=== PATIENT | female | born 1995 | race African-American/Black ===

== ENCOUNTER 2024-08-22 05:16 | Inpatient (IN) ==
[2024-08-22 05:56] LABS: Basophils # (auto) 0.02 K/uL (0.00-0.20); Basophils % (auto) 0.5 %; Eosinophils # (auto) 0.06 K/uL (0.00-0.50); Eosinophils % (auto) 1.4 %; Hematocrit (blood only) 36.2 % (37.0-47.0); Hemoglobin 11.1 g/dl (12.0-16.0); Immature Granulocytes # (auto) 0.01 K/uL (0.01-0.20); Immature Granulocytes % (auto) 0.2 %; Lymphocytes # (auto) 1.51 K/uL (1.20-3.40); Lymphocytes % (auto) 36.5 %; Mean Corpuscular Hgb Conc 30.7 g/dL (32.0-36.0); Mean Corpuscular Volume 78.4 fL (80.0-100.0); Monocytes # (auto) 0.29 K/uL (0.11-0.59); Neutrophils # (auto) 2.25 K/uL (1.40-6.50); Neutrophils % (auto) 54.4 %; Platelet Count 288 K/uL (130-400); RDW Coefficient of Variation 15.9 % (11.5-14.5); RDW Standard Deviation 45.1 fL (36.4-46.3); Red Blood Count 4.62 M/uL (4.20-5.40); White Blood Count 4.14 K/ul (4.8-10.8)
[2024-08-22 06:04] LABS: Appearance Urine Cloudy (Clear); Bacteria Urine Automated 4+ (None Seen); Bilirubin Urine Negative (Negative); Blood Urine Negative (Negative); Cast Urine Automated 0-2 /lpf (0-2); Color Urine Yellow; Glucose Urine UA Negative (Negative); Ketones Urine 1+ (Negative); Leukocyte Esterase Urine 2+ (Negative); Mucus Urine Present (None Prsent); Nitrite Urine Negative (Negative); Protein Urine 1+ (Negative); RBC Urine Automated 0-2 /hpf (0-2); Specific Gravity Urine 1.039 (1.000-1.030); Urobilinogen Urine Negative (Negative); pH Urine 5.5 (4.5-7.5)
[2024-08-22 06:07] LABS: Pregnancy Test, Serum Negative (Negative)
[2024-08-22 06:10] LABS: Acetaminophen < 3 ug/ml (10-30); Salicylate < 3.0 mg/dl (3.0-30)
[2024-08-22 06:12] LABS: Alanine Aminotransferase 13 U/L (7-52); Albumin Globulin Ratio 1.4 (0.9-2); Albumin Level 4.6 gm/dl (3.4-5.0); Alkaline Phosphatase 56 U/L (34-104); Anion Gap 7 (3-11); Aspartate Aminotransferase 19 U/L (13-39); BUN Creatinine Ratio 16.7 (10-20); Bilirubin,Total 1.3 mg/dl (0.2-1.0); Blood Urea Nitrogen 12 mg/dl (6-23); Calcium 9.3 mg/dl (8.6-10.3); Carbon Dioxide 25 mmol/L (21-32); Chloride 106 mmol/L (98-107); Globulin 3.2 gm/dl (2.5-4.0); Glucose 102 mg/dl (70-99(Fasting)); Potassium 3.6 mmol/L (3.5-5.1); Sodium 138 mmol/L (136-145); Total Protein 7.8 gm/dl (6.0-8.3)
[2024-08-22 06:16] LABS: Amphetamines+Metham, Urine Neg (Neg); Barbiturates, Urine Neg (Neg); Benzodiazepine, Urine Neg (Neg); Cocaine, Urine Neg (Neg); Fentanyl, Urine Neg (Neg); MDMA (Ecstacy), Urine Neg (Neg); Marijuana, Urine Pos (Neg); Methadone, Urine Neg (Neg); Opiate, Urine Neg (Neg); Phencyclidine, Urine Neg (Neg)
[2024-08-22 06:26] LABS: Thyroid Stimulating Hormone 3.517 uIu/ml (0.300-4.500)
--- NOTE | 2024-08-22 07:16 | Emergency Department Note ---
Impression & Plan Depression with suicidal ideation, Urinary tract infection, Acute cervicitis ED Provider Note NAME: TIFFANIE ALFARO AGE: 29 SEX: F : 1995 ARRIVES VIA: Police Cru[employer] INFORMANT: Patient, ED PROVIDER(S): Braeden Zaragoza DO CHIEF COMPLAINT: Mental health evaluation HPI: The patient is a 29-year-old female who presented to the emergency department for a mental health evaluation. The patient has been having problems with anxiety. She had a recent break-up with a significant other. She recently lost her job. She has not been sleeping well. The patient presented to the emergency department with police. The patient is having suicidal ideation. She is having specific thoughts of how she would hurt herself. The patient has had a similar admission for this in the past when she still lived in [place]. ROS: See above HPI for pertinent positives & negatives. A total of 10 systems reviewed and were otherwise negative. PAST MEDICAL HISTORY: See Below PAST SURGICAL HISTORY: See Below FAMILY HISTORY: See Below SOCIAL HISTORY: See Below HOME MEDICATIONS: See Below ALLERGIES: See Below VITALS: See Below PHYSICAL EXAMINATION: GENERAL: The patient is awake and alert. She is anxious appearing. EYES: The conjunctivae are clear. The pupils are round and reactive. EARS, NOSE, MOUTH AND THROAT: The nose is without any evidence of any deformity. NECK: The neck is nontender and supple. RESPIRATORY: Normal respiratory effort is noted there is no evidence of wheezing rhonchi or rales CARDIOVASCULAR: Regular rate and rhythm noted there no murmurs rubs or gallops normal S1 normal S2. GASTROINTESTINAL: The abdomen is soft. Abdomen is nontender PELVIS: External genitalia are normal in appearance. There was no rashes or erythema noted. Speculum exam revealed erythema of the cervix as well as a thin white discharge. There was cervical motion tenderness. There was no adnexal tenderness. Cervical motion tenderness was mild. MUSCULOSKELETAL/EXTREMITIES: There is no evidence of gross deformity full range of motion is noted in the hips and shoulders. SKIN: There is no obvious evidence of any rash. There are no petechiae, pallor or cyanosis noted. NEUROLOGIC: Patient is awake alert and oriented x3 strength is symmetric patellar reflexes are 2+ bilaterally PSYCH: The patient makes poor eye contact during the evaluation. Her affect is flat. She continues to admit to suicidal ideation. MEDICAL DECISION MAKING: The patient is a 29-year-old female who presented to the emergency department for an evaluation of mental health issues. The patient arrived with police. The patient was having significant stressors as well as anxiety. She has had thoughts of harming herself with a specific plan. The patient was medically cleared in the emergency department. She appears to have signs of urinary tract infection on urinalysis. She was started on an antibiotic. Vital signs are reassuring. I discussed patient's condition with the emergency departmental with registered nurse hh case manager. The patient was evaluated by the mental-health registered nurse hh case manager in the emergency department. Bed search is currently underway. The patient was referred to [facility] initially for possible inpatient management. We are awaiting their evaluation. Once the patient was evaluated by [facility] the patient confided in the delegate that she was having some vaginal discharge. She was sexually active 3 weeks ago. For this reason a pelvic exam was done and the patient appears to have what looks like cervicitis. Cultures were taken. The patient was given Rocephin as well as doxycycline. She should continue the doxycycline as well as the cefdinir. The patient may need evaluated by W[employer] if symptoms do not improve in the usual fashion. Cultures are pending. Triage Nursing notes reviewed. Prior medical records reviewed Vital Signs: reviewed and remarkable for no significant abnormalities Differential diagnosis: Mood disorder, infection, hypoglycemia, electrolyte abnormalities, cardiac sources, intracerebral event, toxicologic, trauma, neurologic, as well as other pathologies. ER treatment provided: See below Diagnostics interpreted by me: ECG: none Laboratory studies: As stated above and show below. Imaging studies: See below. Consultation(s): I discussed this case with the mental health registered nurse hh case manager. Past Med/Surg History Problem List (Updated 08/22/24 @ 11:46 by Braeden Zaragoza DO) Acute cervicitis (Acute) Urinary tract infection (Acute) Depression with suicidal ideation (Acute) Medical History Depression with anxiety Anxiety Social History Smoking Status: Current every day smoker Tobacco Type: E-cigarettes / Vaping Preferred Language: Thai Feels Safe at Home: No Gender Identity: Female Allergies Allergies Allergy/AdvReac Type Severity Reaction Status Date / Time No Known Allergies Allergy Unverified 06/03/24 08:27 Home Meds Home Medications Medication Instructions Recorded Confirmed escitalopram oxalate 10 mg tablet 10 mg PO DAILY 07/11/23 08/22/24 Results & Data (ED) Vital Signs Vital Signs - 24 hr 08/22/24 05:09 08/22/24 07:00 08/22/24 09:57 Temperature 36.7 C 36.7 C Temperature Source Oral Oral Pulse Rate 86 Pulse Rate [Finger] 71 77 Pulse Rhythm Regular Pulse Strength Normal Respiratory Rate 17 20 20 Respiratory Effort / Characteristics Non-Labored Spontaneous Non-Labored Spontaneous Non-Labored Spontaneous Respiratory Depth Normal Normal Normal Respiratory Pattern Regular Blood Pressure 131/89 Blood Pressure [Left Arm] 121/80 114/60 Blood Pressure Mean 103 Blood Pressure Mean [Left Arm] 93 78 Blood Pressure Position Sitting Pulse Oximetry 100 96 98 Oxygen Delivery Method Room Air Room Air Room Air Sepsis Recent Fever Within 48 Hours No Sepsis New/Unexplained Change in Mental Status N/A Sepsis Action Taken by Nursing No Action Required Home Medications Current Medication List: was personally reviewed by me Laboratory Data Attestation: I reviewed the patient's lab results. 08/22/24 05:30 08/22/24 05:30 Lab Results 08/22/24 08/22/24 08/22/24 Range/Units 05:20 05:25 05:30 WBC 4.14 L (4.8-10.8) K/ul RBC 4.62 (4.20-5.40) M/uL Hgb 11.1 L (12.0-16.0) g/dl Hct 36.2 L (37.0-47.0) % MCV 78.4 L (80.0-100.0) fL MCH 24.0 L (25.0-34.0) pg MCHC 30.7 L (32.0-36.0) g/dL RDW Std Deviation 45.1 (36.4-46.3) fL RDW Coeff of Darrin 15.9 H (11.5-14.5) % Plt Count 288 (130-400) K/uL MPV 10.0 (9.4-12.4) fL Immature Gran % (Auto) 0.2 % Neut % (Auto) 54.4 % Lymph % (Auto) 36.5 % Sutter % (Auto) 7.0 % Eos % (Auto) 1.4 % Baso % (Auto) 0.5 % Neut # (Auto) 2.25 (1.40-6.50) K/uL Lymph # (Auto) 1.51 (1.20-3.40) K/uL Sutter # (Auto) 0.29 (0.11-0.59) K/uL Eos # (Auto) 0.06 (0.00-0.50) K/uL Baso # (Auto) 0.02 (0.00-0.20) K/uL Immature Gran # (Auto) 0.01 (0.01-0.20) K/uL Sodium 138 (136-145) mmol/L Potassium 3.6 (3.5-5.1) mmol/L Chloride 106 (98-107) mmol/L Carbon Dioxide 25 (21-32) mmol/L Anion Gap 7 (3-11) BUN 12 (6-23) mg/dl Creatinine 0.72 (0.6-1.2) mg/dl Est Cr Clr Drug Dosing Not Reportable eGFR 117.45 BUN/Creatinine Ratio 16.7 (10-20) Glucose 102 H (70-99(Fasting)) mg/dl Calcium 9.3 (8.6-10.3) mg/dl Total Bilirubin 1.3 H (0.2-1.0) mg/dl AST 19 (13-39) U/L ALT 13 (7-52) U/L Alkaline Phosphatase 56 (34-104) U/L Total Protein 7.8 (6.0-8.3) gm/dl Albumin 4.6 (3.4-5.0) gm/dl Globulin 3.2 (2.5-4.0) gm/dl Albumin/Globulin Ratio 1.4 (0.9-2) TSH 3.517 (0.300-4.500) uIu/ml HCG, Qual Negative (Negative) Urine Color Yellow Urine Appearance Cloudy A (Clear) Urine pH 5.5 (4.5-7.5) Ur Specific Grant 1.039 H (1.000-1.030) Urine Protein 1+ H (Negative) Urine Glucose (UA) Negative (Negative) Urine Ketones 1+ H (Negative) Urine Blood Negative (Negative) Urine Nitrite Negative (Negative) Urine Bilirubin Negative (Negative) Urine Urobilinogen Negative (Negative) Ur Leukocyte Esterase 2+ H (Negative) Urine WBC (Auto) 11-20 H (0-5) /hpf Urine RBC (Auto) 0-2 (0-2) /hpf U Hyaline Cast (Auto) 0-2 (0-2) /lpf U Epithel Cells (Auto) 11-20 H (0-2) /hpf Urine Bacteria (Auto) 4+ H (None Seen) Urine Mucus Present A (None Prsent) Salicylates < 3.0 L (3.0-30) mg/dl Urine Opiates Screen Neg (Neg) Ur Methadone, Qual Neg (Neg) Urine Fentanyl Screen Neg (Neg) Acetaminophen < 3 L (10-30) ug/ml Urine Barbiturates Neg (Neg) Ur Phencyclidine (PCP) Neg (Neg) U Amphetamin/Meth Scrn Neg (Neg) MDMA (Ecstasy) Screen Neg (Neg) U Benzodiazepines Scrn Neg (Neg) Ur Cocaine Metabolite Neg (Neg) U Marijuana (THC) Screen Pos H (Neg) Ethyl Alcohol mg/dL < 10.0 (<10.0) mg/dl SARS-CoV-2, RNA, NAAT NEGATIVE (NEGATIVE) Administered Medications Discontinued Medications Cefdinir (Cefdinir 300 Mg Cap) 300 mg PO ONE STA; Protocol Stop: 08/22/24 07:33 Last Admin: 08/22/24 08:27 Dose: 300 mg Documented By: NDW Ceftriaxone Sodium (Ceftriaxone Sodium 350 Mg/Ml Im) 500 mg IM NOW ONE Stop: 08/22/24 11:31 Last Admin: 08/22/24 11:37 Dose: 500 mg Documented By: CEF Doxycycline Hyclate (Doxycycline Hyclate 100 Mg Cap) 100 mg PO NOW STA Stop: 08/22/24 11:31 Last Admin: 08/22/24 11:34 Dose: 100 mg Documented By: CEF Discharge Plan Visit Data Chief Complaint: Mental Health Evaluation Stated Complaint: 201 ED Provider: Braeden Zaragoza Discharge Problem: Depression with suicidal ideation, Urinary tract infection, Acute cervicitis Patient Disposition: Still a Patient Forms Stand Alone Forms: My [facility], Suicide Prevention Resources Prescriptions Prescriptions: No Action escitalopram oxalate 10 mg tablet 10 mg PO DAILY Referrals Referrals: Tereso Ivey MD [Primary Care Provider] - Discharge Problem: Urinary tract infection Qualifiers: Urinary tract infection type: acute cystitis Hematuria presence: without hematuria Qualified Code(s): N30.00 - Acute cystitis without hematuria
--- OUTSIDE RECORDS SUMMARY | 2024-08-22 08:13 | External Medical Summary | Summary of Care ---
Author Name Unknown Organization [facility] Address [address] [place] [address] Phone [phone] Care Team Providers Care Psychic Reader Name Role Phone Mary Jo Varghese BRENDAN Primary Care Provider [phone] Reason for Visit * Reason Onset Date Comments No Show 07/01/2024 [facility] No Show Auto mation Encounter Details Date Type Department Care Team (Late st Contact Info) Description 07/01/2024 Telephone Family Practice [facility] [address] [place] [address] Justen Fontenot III, MD [address] [place] [address] No Show ([place] No Show Automation) Allergies No known active allergiesdocumented as of this encounter (statuses as of 07/01/2024) Medications Escitalopram Oxalate 10 MG Oral Tablet (Lexapro) TAKE 1 TABLET BY MOUTH DAILY 30 Tablet 11 09/26/2023 Active documented as of this encounter (statuses as of 07/01/2024) Active Problems No known active problems documented as of this encounter (statuses as of 07/01/2024) Resolved Problems Problem Noted Date Diagnosed Date Resolved Date Food insecurity 02/19/2023 04/24/2024 Overview: Per [facility] Protocol documented as of this encounter (statuses as of 07/01/2024) Immunizations Name Administration Dates Next Due COVID-19 mRNA, LNP-s, No Pre serve, 2-Dose Series ([employer]!) 02/03/2021,01/13/2021 COVID-19, LNP-s, No Preserve , David-sucrose, Ages 12+ (Pfizer) 11/01/2021 documented as of this encounter Social History Tobacco Use Types Packs/Day Years Used Date Smoking Tobacco: Never Smokeless Tobacco: Never Alcohol Use Standard Drinks/Week Comments Yes 0 (1 standard drink = 0.6 oz pur e alcohol) rarely PHQ-2 Answer Date Recorded PHQ Adult Total Score 2 04/09/2024 Hunger Vital Sign Answer Date Recorded Within the past 12 months, y ou worried that your food would run out before you got the money to buy more. Patient declined Within the past 12 months, t he food you bought just didn't last and you didn't have money to get more. Patient declined Childcare Answer Date Recorded Do you feel overwhelmed with taking care of a child, family member or friend? No 04/05/2024 Does your family need help f inding childcare? (Household - for ages 0-17 years) Not on file 04/05/2024 Clothing Answer Date Recorded Have you been unable to get clothing when it was really needed? No 04/05/2024 Is your family able to get c lothes or diapers when needed? (Household - for ages 0-17 years) Not on file 04/05/2024 Personal Safety Answer Date Recorded Do you feel unsafe or have concerns for your saf ety? No 04/05/2024 Do you have concerns for you r family's safety? (Household - for ages 0-17 years) Not on file 04/05/2024 Utilities Answer Date Recorded Do you have trouble paying y our heating, water, or electric bill? No 04/05/2024 Is your family able to pay t he heat, water, or electric bill? (Household - for ages 0-17 years) Not on file 04/05/2024 Does your family have access to good internet? (Household - for ages 0-17 years) Not on file 04/05/2024 Employment Status Answer Date Recorded Are you unemployed or without regular income? No 04/05/2024 Does the household have a re gular source of income? (Household - for ages 0-17 years) Not on file 04/05/2024 Social Connections Answer Date Recorded How often do you feel lonely or isolated from th ose around you? Always 04/05/2024 Financial Resource Strain Answer Date R ecorded Do you have any trouble payi ng for your medications, or do you think you might in the future? Yes 04/05/2024 Does your family have troubl e paying for medicine? (Household - for ages 0-17 years) Not on file 04/05/2024 Transportation Needs Answer Date Record ed Do you have trouble getting a ride to medical visits or work? (Adult - for ages 18 years and over) Not on file 04/05/2024 Does your family have a hard time getting a ride to doctors visits? (Household - for ages 0-17 years) Not on file 04/05/2024 Has lack of transportation k ept you from medical appointments, meetings, work, or from getting things needed for daily living? Check all that apply. Yes, it has kept me from medical appointments 04/05/2024 Do you (or your family) have trouble finding or paying for a ride (transportation)? (Household - for ages 0-17 years) Not on file 04/05/2024 Housing Stability Answer Date Recorded Do you currently live in a s helter or have no steady place to sleep at night? No 04/05/2024 Do you think you are at risk of becoming homeless? (Adult - for ages 18 years and over) Not on file 04/05/2024 Does your family worry about paying for your home or becoming homeless? (Household - for ages 0-17 years) Not on file 0 04/05/2024 Are you homeless or worried that you might be in the future? No 04/05/2024 Are you (or your family) kim eless or worried that you might be in the future? (Household - for ages 0-17 years) Not on file Food Insecurity Answer Date Recorded Do you need food for this week? No 04/05/2024 Are you able to get enough f ood for your family? (Household - for ages 0-17 years) Not on file 04/05/2024 Does your family need food t his week? (Household - for ages 0-17 years) Not on file 04/05/2024 Do you always have enough fo od for your family? (Household - for ages 0-17 years) Not on file 04/05/2024 Comments Unknown Sex and Gender Information Value Date Recorded Sex Assigned at Female 02/01/2023 10:11 AM EDT Legal Sex Female 4:18 PM EST Gender Identity Female 02/01/2023 10:11 AM EDT Sexual Orientation Bisexual 02/01/2023 10 :11 AM EDT documented as of this encounter Miscellaneous Notes * Telephone Encounter - Kirill, No Show - 07/01/2024 4:26 AM EST Dear Chucky Fountain, Looks like you missed an appointment with JUSTEN FONTENOT III on 06/20/2024 at 07:40 AM. If you haven't already rescheduled, you have a couple of options: Reschedule in [employer] [email or web address] Video/scheduling Call us at [phone] Can't make a future appointment? Cancel and let someone else have your spot! It's easy to do via [email or web address] or by calling us. Thanks for trusting [facility] with your care. We hope to see you back in our office soon. Sincerely, JUSTEN FONTENOT III documented in this encounter Plan of Treatment Health Maintenance Due Date Last Done Comments HIV Screening 2012 HPV (Gardasil) Vaccine (1 - 3-dose series) 2012 Hepatitis C Screening 2015 DTap/Tdap Vaccines (1 - Tdap) 2016 Hepatitis B Vaccine (1 of 3 - 19+ 3-dose series) 2016 COVID-19 Vaccine ( season) 2024 05/22/2022, 11/01/2021, 02/03/2021, Additional history exists Influenza Vaccine (FLU shot) (#1) 2024 Depression Screening 04/09/2025 04/09/2024 Pap Smear 04/09/2027 04/09/2024, 12/06/2022 Gonorrhea / Chlamydia Screen Discontinued 04/09/2024, 12/06/2022 MENINGOCOCCAL (MENACTRA/MENVEO) Aged Out No longer eligible based on patient's age to complete this topic Pneumococcal Vaccine: Pediatrics (0 to 5 Years) and At-Risk Patients (6 to 64 Years) Aged Out No longer eligible based on patient's age to complete this topic documented as of this encounter Medical Devices Not on filedocumented as of this encounter Care Teams Psychic Reader Relationship Specialty Start Date End Date Abimael November BRENDAN Colón [facility] [place] [address] PCP - General Physician Wet Suit Gluer 06/04/24 documented as of this encounter
--- OUTSIDE RECORDS SUMMARY | 2024-08-22 08:13 | External Medical Summary | Summary of Care ---
Author Name Unknown Organization [facility] Address [address] [place] [address] Phone [phone] Care Team Providers Care Audio Engineer Name Role Phone Mary Jo Varghese PA-C Primary Care Provider [phone] Encounter Details Date Type Department Care Team (Late st Contact Info) Description 04/10/2024 Telephone Family Practice [facility] [address] [place] [address] Mary Jo Varghese PA-C [address] [facility] [place] [address] Allergies No known active allergiesdocumented as of this encounter (statuses as of 07/10/2024) Medications Escitalopram Oxalate 10 MG Oral Tablet (Lexapro) TAKE 1 TABLET BY MOUTH DAILY 30 Tablet 11 09/26/2023 Active Fluconazole 150 MG Oral Tablet (Diflucan)Indic ations:Yeast vaginitis Take 1 Tablet by mouth once for 1 dose. 1 Tablet 04/10/2024 04/10/20 24 metroNIDAZOLE 500 MG Oral Tablet (Flagyl)Indicat ions:Bacterial vaginitis Take 1 Tablet by mouth in the morning and 1 Tablet at noon and 1 Tablet before bedtime. Do all this for 10 days. until gone.. 30 Tablet 04/10/2024 04/20/20 24 documented as of this encounter (statuses as of 07/10/2024) Active Problems No known active problems documented as of this encounter (statuses as of 07/10/2024) Resolved Problems Problem Noted Date Diagnosed Date Resolved Date Food insecurity 02/19/2023 04/24/2024 Overview: Per [facility] Protocol documented as of this encounter (statuses as of 07/10/2024) Immunizations Name Administration Dates Next Due COVID-19 mRNA, LNP-s, No Pre serve, 2-Dose Series ([employer]) 02/03/2021,01/13/2021 COVID-19, LNP-s, No Preserve , David-sucrose, Ages 12+ ([employer]) 11/01/2021 documented as of this encounter Social [...] encounter Miscellaneous Notes * Telephone Encounter - Pauline Herron LPN - 04/16/2024 6:20 PM EDT My g message sent to patient asking to return call to phone nurse line. * Telephone Encounter - Vilma Conn LPN - 04/11/2024 2:58 PM EDT Left message for patient to return call. Please transfer to the dedicated nurse line * Telephone Encounter - Mary Jo Varghese PA-C - 04/10/2024 8:30 PM EDT Please call patient inform her a both yeast and bacterial vaginosis are present. No signs of any sexually transmitted diseases so far. Prescriptions have been sent to her pharmacy to treat these things. documented in this encounter Plan of Treatment [...] Not on filedocumented as of this encounter Visit Diagnoses Diagnosis Bacterial vaginitis- Primary Vaginitis and vulvovaginitis, unspecified Yeast vaginitis Candidiasis of vulva and vagina documented in this encounter Care Teams Audio Engineer Relationship Specialty Start Date End Date AbimaelNovember BRENDAN [address] [place] [address] PCP - General Physician Nursing Assistant 06/04/24 documented as of this encounter
[2024-08-22] MEDS: CEFDINIR 300 MG CAP PO STA (08:27)
[2024-08-22] MEDS: DOXYCYCLINE HYCLATE 100 MG CAP PO STA (11:34)
[2024-08-22] MEDS: cefTRIAXone SODIUM 350 MG/ML IM IM ONE (11:37)
[2024-08-22] MEDS ORDERED: BISMUTH SUBSALICYLATE 262 MG CHEW PO PRN (12:36)
[2024-08-22] MEDS ORDERED: SODIUM CHLORIDE 0.65% NA SOLN 45 ML (OCEAN) PRN (12:36)
[2024-08-22] MEDS ORDERED: ALUMINUM/MAGNESIUM SUSP 30 ML UDC PO PRN (12:36)
[2024-08-22] MEDS ORDERED: MAGNESIUM HYDROXIDE SUSP 30 ML UDC PO PRN (12:36)
--- NOTE | 2024-08-22 14:22 | History & Physical ---
Date of Service August 22, 2024 Impression / Recommendations Impression TIFFANIE ALFARO is a 29-year-old woman who currently lives in [place] alone, has a history of depression, anxiety, and was admitted on 08/22/24 11:02 on a 201 voluntary commitment for worsening depression and SI with plans. Diagnostically consistent with unspecified depression with differential including major depressive disorder vs borderline personality disorder vs PTSD vs cannabis-induced mood symptoms as well as likely generalized anxiety disorder and social anxiety disorder with suspected contribution from cannabis use and trauma history. Discussed medication treatment options in detail. Discussed risks, benefits and alternatives. She would like to continue escitalopram and consented to this for depression and anxiety. Reviewed side effects including but not limited to: GI, ALMANZAR, sexual side effects. She also consents to use of antibiotics for possible UTI and suspected cervical inflammation Her use history and dependence suggests substance use disorder. Motivational interviewing was done as a brief intervention. Intervention was greater than 5 minutes in length and included assessing readiness to quit, advice on how to reduce or abstain and to set a specific goal for this hospitalization. marriage and family social worker will also assist in anticipating barriers to reducing or abstaining from substance use and in problem-solving for solutions to those problems while arranging for referral to appropriate treatment. The patient is in contemplative stage with regards to transtheoretical model of change. Recommended decreasing consumption due to disinhibiting effects and potential for worsening psychiatric symptoms. Overall I spent a total of 80 minutes for this admission including review of chart records, review of labwork, direct evaluation of the patient, counseling the patient, ordering medication, risk assessment, discussion with the psychiatric liason RN and documentation in the electronic health record. (1) Depression with suicidal ideation: (2) Generalized anxiety disorder with panic attacks: (3) Cannabis use disorder, moderate, dependence: Plan 08/22/2024: The patient was admitted to the [facility] ([facility] inpatient mental health unit) on q15 min checks (behavioral with suicide precautions) for safety. The patient will participate in group, recreational, and milieu therapies and will be offered additional individual and family sessions as clinically appropriate. -Medications: * continue escitalopram 10 mg daily * doxycycline 100mg BID for 10 days * cefdinir 300mg BID for 5 days -Questionnaires: * Mood Disorder Questionnaire * Louis BPD Screen * NABILA Inventory Inventory Assets Strengths: resilient, independent, willing to get treatment Needs: safety and stabilization, medication adjustment, additional coping skills, increased outpatient services Suicide Risk Level Suicide Risk Level: High-Moderate (q15 min suicide checks) (SI with plan prior to admission, but feels safe in the hospital, feels able to ask for support if needed) Risk Factors Assessment Male: No : No Do You Have Access To A Gun?: No Health Problems: No Mental Health Diagnoses: Yes Substance Use Disorders: Yes Previous Attempt: No Previous Psychiatric Hospitalization: Yes Hopelessness: Yes Protective Factors Assessment Employed: Yes (new job but also quit previous job) Psychiatric History Identifying Data TIFFANIE ALFARO is a 29-year-old woman who currently lives in [facility], has a history of depression, anxiety, and was admitted on 08/22/24 11:02 on a 201 voluntary commitment for worsening depression and SI with plans. Chief Complaint "It was just too much". History of Present Illness Sheama presents for psychiatric admission for worsening depression and SI with plan of running in front of traffic or jumping from the roof of her building in the context of multiple psychosocial stressors including a breakup with her boyfriend of four months. Additional stressors include recent job loss and potential loss of housing, contributing to her high stress levels. She notes she threw out all her belongings impulsively and things got "really bad", started to text her friends "scary stuff like I want to " and started to feel like "things aren't real" and "I just couldn't handle everything all at once". Her friends notified the police who then brought her to the hospital. She quit her job in early July due to high work burden at times and trying to manage anxiety as well which became too overwhelming "physically, mentally". Her mood was happier prior to the break-up and now she's having a lot more depression with hopelessness, decreased appetite (but also not using cannabis), and variable sleep. She has a history of similar reactions to relationship endings. SI has been occurring since Sunday and intensified quickly to the point of not looking when she crossed the road, not fearing if she was hit by a car. She also endorses symptoms of anxiety including generalized worries, muscle tension, decreased appetite, easily overwhelmed and panic attacks in the past but none recently. Some periods of derealization that worsen with cannabis use. She endorse PTSD symptoms including intrusive memories/flashbacks, avoidance (doesn't go to the gym due to crowds), hypervigilance, emotional lability, decreased concentration, night terrors (variable, increases with stress, often 1-2 per week). She is currently prescribed escitalopram (since December or January 2023, helps with anxiety, no current side effects but notes she is more prone to fainting since starting the medication; she recalls having a reaction when first starting this of increased paranoia). Psychiatric ROS notable for no current nor history of symptoms of xavi, psychosis. History of self-harm via cutting. Identifies she can be very impulsive, has resulting in stealing at times. Past Psychiatric History Current Psychiatric Diagnosis: Depression; Anxiety Outpatient Services: none currently Previous Psych Admissions: once in her teens Do You Have Access To A Gun?: No History of Previous Suicide Attempt: No Past Medication Trials: can't recall any other trials except Valium as a teen was tried on another anxiety medication but doesn't recall the name Past Head Trauma/Neuro History History of Concussion/Seizure: No Allergies Allergy/AdvReac Type Severity Reaction Status Date / Time No Known Allergies Allergy Unverified 08/22/24 15:06 Home Medications Medication Instructions Recorded Confirmed Type escitalopram oxalate 10 mg tablet 10 mg PO DAILY 07/11/23 08/22/24 History Family History Family History of: Doesn't Know Family Mental Health History Comment: Family from [facility] - no contact; mother struggled with mental health Alcohol History Hx of Alcohol Use Over the Past 12 Months: No Smoking Use Have You Smoked or Used Tobacco Products in the Last 30 Days: No Smoking Status: Former smoker Substance History Hx of Prescription Med Misuse Over the Past 12 Months: No Hx of Over the Counter Med Misuse Over the Past 12 Months: No Hx of Inhalent Misuse Over the Past 12 Months: No Hx of Organic Substance Use Over the Past 12 Months: Yes (THC - last use a few days ago) Hx of Illegal Substances/Street Drug Use Over Past 12 Months: No Problems as a Result of Past Substance Use: None Identified smokes marijuana "a lot" every day, since about age 21, "I try to be high as much as I can", likes that: "it feels safe" due to past exposure, "it helps me be happy", less lonely. Doesn't like that it's expensive, feels like it can make anxiety worse and can cause paranoia. Has gone 9 months to a year without using cannabis in the past. 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 ) Marital Status: Single Number Of Children: 0 Beliefs That Will Affect Care: None Current Legal Problems: No Hx Legal Problems: No Hx Traumatic Life Events: Yes Patient History Medical History Depression with anxiety Anxiety Social History Smoking Status: Former smoker Tobacco Type: E-cigarettes / Vaping Preferred Language: [place] Verdean Communication Ability: Effective Towboat Captain Required: No Beliefs That Will Affect Care: None Feels Safe at Home: Hesitant to Answer Gender Identity: Female Assistive Devices: Glasses Review of Systems Review of Systems: All systems reviewed & are unremarkable except as noted in HPI & below Physical Exam Psychiatric: Orientation: alert and oriented x 3 Apperance: appropriately dressed and appropriately groomed Eye Contact: + fair eye contact Motor Behavior: no abnormal motor movements Speech: normal rate/rhythm/volume of speech Affect: + depressed affect and + anxious affect Mood: + depressed mood and + anxious mood Thought Process: + circumstantial thought process Thought Content: reality based without delusions and + self deprecation Suicidal Thoughts: denies suicidal intent; + reports suicidal thoughts and + rep orts suicidal plan (none for hospital, outside to walk into traffic or jump from height) Homicidal Thoughts: denies homicidal thoughts Hallucinations: no auditory hallucinations and no visual hallucinations Cognition: recent memory grossly intact, remote memory grossly intact and language grossly intact; + attention not intact (losing track of thoughts ) Estimated Intelligence: consistent with education level Insight: + fair insight Judgment: + limited judgement Vital Signs (Past 24 Hours): Last Vital Signs Temp 36.7 C 08/22/24 12:38 Pulse 76 08/22/24 12:38 Resp 16 08/22/24 12:38 BP 116/79 08/22/24 12:38 Pulse Ox 100 08/22/24 12:38 O2 Del Method Room Air 08/22/24 12:38 Exam Statement: A physical exam was performed in the ED by Dr. Zaragoza for the purposes of medical clearance. I accept that physical as correct and adequate for the purposes of the inpatient physical exam. Results & Data ([facility]) Laboratory Results Laboratory Results - last 24 hr 08/22/24 08/22/24 08/22/24 05:20 05:25 05:30 WBC 4.14 L RBC 4.62 Hgb 11.1 L Hct 36.2 L MCV 78.4 L MCH 24.0 L MCHC 30.7 L RDW Std Deviation 45.1 RDW Coeff of Darrin 15.9 H Plt Count 288 MPV 10.0 Immature Gran % (Auto) 0.2 Neut % (Auto) 54.4 Lymph % (Auto) 36.5 [place] % (Auto) 7.0 Eos % (Auto) 1.4 Baso % (Auto) 0.5 Neut # (Auto) 2.25 Lymph # (Auto) 1.51 [place] # (Auto) 0.29 Eos # (Auto) 0.06 Baso # (Auto) 0.02 Immature Gran # (Auto) 0.01 Sodium 138 Potassium 3.6 Chloride 106 Carbon Dioxide 25 Anion Gap 7 BUN 12 Creatinine 0.72 Est Cr Clr Drug Dosing Not Reportable eGFR 117.45 BUN/Creatinine Ratio 16.7 Glucose 102 H Calcium 9.3 Total Bilirubin 1.3 H AST 19 ALT 13 Alkaline Phosphatase 56 Total Protein 7.8 Albumin 4.6 Globulin 3.2 Albumin/Globulin Ratio 1.4 TSH 3.517 HCG, Qual Negative Urine Color Yellow Urine Appearance Cloudy A Urine pH 5.5 Ur Specific [place] 1.039 H Urine Protein 1+ H Urine Glucose (UA) Negative Urine Ketones 1+ H Urine Blood Negative Urine Nitrite Negative Urine Bilirubin Negative Urine Urobilinogen Negative Ur Leukocyte Esterase 2+ H Urine WBC (Auto) 11-20 H Urine RBC (Auto) 0-2 U Hyaline Cast (Auto) 0-2 U Epithel Cells (Auto) 11-20 H Urine Bacteria (Auto) 4+ H Urine Mucus Present A Vaginal Argelia glabrata Salicylates < 3.0 L Urine Opiates Screen Neg Ur Methadone, Qual Neg Urine Fentanyl Screen Neg Acetaminophen < 3 L Urine Barbiturates Neg Ur Phencyclidine (PCP) Neg U Amphetamin/Meth Scrn Neg MDMA (Ecstasy) Screen Neg U Benzodiazepines Scrn Neg Ur Cocaine Metabolite Neg U Marijuana (THC) Screen Pos H U Marijuana THC Carboxy Pending Drug Screen Comment Pending Ethyl Alcohol mg/dL < 10.0 Argelia species C.trachomatis RNA M. genitalium (VILMA) N.gonorrhoeae RNA SARS-CoV-2, RNA, NAAT NEGATIVE Bact Vag VILMA Interpr T. vaginalis Amp RNA 08/22/24 11:29 WBC RBC Hgb Hct MCV MCH MCHC RDW Std Deviation RDW Coeff of Darrin Plt Count MPV Immature Gran % (Auto) Neut % (Auto) Lymph % (Auto) [place] % (Auto) Eos % (Auto) Baso % (Auto) Neut # (Auto) Lymph # (Auto) [place] # (Auto) Eos # (Auto) Baso # (Auto) Immature Gran # (Auto) Sodium Potassium Chloride Carbon Dioxide Anion Gap BUN Creatinine Est Cr Clr Drug Dosing eGFR BUN/Creatinine Ratio Glucose Calcium Total Bilirubin AST ALT Alkaline Phosphatase Total Protein Albumin Globulin Albumin/Globulin Ratio TSH HCG, Qual Urine Color Urine Appearance Urine pH Ur Specific [place] Urine Protein Urine Glucose (UA) Urine Ketones Urine Blood Urine Nitrite Urine Bilirubin Urine Urobilinogen Ur Leukocyte Esterase Urine WBC (Auto) Urine RBC (Auto) U Hyaline Cast (Auto) U Epithel Cells (Auto) Urine Bacteria (Auto) Urine Mucus Vaginal Argelia glabrata Pending Salicylates Urine Opiates Screen Ur Methadone, Qual Urine Fentanyl Screen Acetaminophen Urine Barbiturates Ur Phencyclidine (PCP) U Amphetamin/Meth Scrn MDMA (Ecstasy) Screen U Benzodiazepines Scrn Ur Cocaine Metabolite U Marijuana (THC) Screen U Marijuana THC Carboxy Drug Screen Comment Ethyl Alcohol mg/dL Argelia species Pending C.trachomatis RNA Pending M. genitalium (VILMA) Pending N.gonorrhoeae RNA Pending SARS-CoV-2, RNA, NAAT Bact Vag VILMA Interpr Pending T. vaginalis Amp RNA Pending Current Inpatient Medications Current Inpatient Medications: Current Inpatient Medications Acetaminophen (Acetaminophen 325 Mg Tab) 650 mg PO Q4H PRN PRN Reason: Headache or Minor Fever Stop: 09/21/24 12:35 Al Hydrox/Mg Hydrox/Simethicone (Aluminum/Magnesium Susp 30 Ml Udc) 30 ml PO Q4H PRN PRN Reason: GI Upset Stop: 09/21/24 12:35 Bismuth Subsalicylate (Bismuth Subsalicylate 262 Mg Chew) 2 tab PO Q30M PRN PRN Reason: Loose Stool/Diarrhea Stop: 09/21/24 12:35 Hydroxyzine HCl (Hydroxyzine Hcl 25 Mg Tab) 50 mg PO HSZ PRN PRN Reason: Insomnia Stop: 09/21/24 12:35 Hydroxyzine HCl (Hydroxyzine Hcl 25 Mg Tab) 25 mg PO Q4H PRN PRN Reason: Anxiety Stop: 09/21/24 12:35 Magnesium Hydroxide (Magnesium Hydroxide Susp 30 Ml Udc) 30 ml PO DAILY PRN PRN Reason: Constipation Stop: 09/21/24 12:35 Sodium Chloride (Sodium Chloride 0.65% Na Soln 45 Ml ([place])) 1 - 2 sprays NA PRN PRN PRN Reason: Nasal Dryness/Congestion Stop: 09/21/24 12:35
[2024-08-22] MEDS ORDERED: ONDANSETRON 2 MG OD TAB PO PRN (15:42)
[2024-08-22] MEDS: INFLUENZA VACC TS2024-25(6m+)/PF (IIV3) 0.5mL Syr IM ONE (16:32)
[2024-08-22] MEDS: CEFDINIR 300 MG CAP PO SCH (17:37)
[2024-08-22] MEDS: DOXYCYCLINE HYCLATE 100 MG CAP PO SCH (17:37)
[2024-08-22] MEDS: ESCITALOPRAM OXALATE 10 MG TAB PO SCH (17:37)
[2024-08-22] MEDS: hydrOXYzine HCl 25 MG TAB PO PRN (22:05)
[2024-08-23] MEDS: ADVANCED PROBIOTIC 625 MG CAPSULE PO SCH (09:24)
[2024-08-23 10:23] LABS: Bacterial Vaginosis RNA POSITIVE (Negative)
[2024-08-23 10:38] LABS: Candida glabrata RNA Negative (Negative); Candida species group RNA POSITIVE (Negative); Trichomonas vaginalis RNA Negative (Negative)
[2024-08-23 10:50] LABS: Mycoplasma Genitalium RNA Negative (Negative)
[2024-08-23 11:15] LABS: Chlam trach RNA(Genit,Ureth,Ur Not Detected (NotDetected); GC(Neis gon)RNA(Genit,Ureth,Ur Not Detected (NotDetected)
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
[2024-08-23] MEDS: FLUCONAZOLE 50 MG TAB PO ONE (18:02)
[2024-08-23] MEDS: hydrOXYzine HCl 25 MG TAB PO PRN (21:56)
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
[2024-08-24 16:02] LABS: Marijuana Quant, GCMS Urine 4258 ng/mL (<5)
[2024-08-24] MEDS: ACETAMINOPHEN 325 MG TAB PO PRN (18:45)
[2024-08-24] MEDS: cloNIDine HCL 0.1 MG TAB PO SCH (21:23)
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
[2024-08-25] MEDS ORDERED: IBUPROFEN 200 MG TAB PO PRN (15:16)
--- NOTE | 2024-08-26 08:41 | Psychiatric Progress Note ---
Date of Service August 26, 2024 Impression / Recommendations Impression TIFFANIE ALFARO is a 29-year-old woman who currently lives in [place] alone and was admitted on 08/22/24 11:02 on a 201 voluntary commitment for worsening depression and SI with plans. Diagnostically, consistent with psychological sequelae of extensive lifetime trauma (r/o PTSD) and major depressive disorder r/o cannabis-induced mood symptoms. Also consistent with generalized anxiety disorder, social anxiety disorder and cluster B traits. Have reviewed post-discharge recommendations including trauma-focused CBT, DBT, GO - treatment. Overall I spent a total of 30 minutes for this admission including review of chart records, review of labwork, direct evaluation of the patient, counseling the patient, ordering medication, risk assessment, discussion with the psychiatric liason RN and documentation in the electronic health record. (1) Depression with suicidal ideation: (2) Generalized anxiety disorder with panic attacks: (3) Cannabis use disorder, moderate, dependence: (4) Acute cervicitis: Plan 08/26/24: Continue current medication. Prepare for discharge. 08/25/24 Continue current medication. Continue individual, group and milieu therapy SW is exploring support for applying for insurance to facilitate referral for outpatient therapy. ELOS 3 days. 08/24/24: -Continue current level of observation. - Continue Lexapro 10mg daily, Doxycycline 100mg bid to complete 10 days, Cefdinir 300mg to complete 5 day course. - Add Clonidine 0.1mg qhs. 08/23/24: -Continue current level of observation. -Continue current medication: Escitalopram 10mg daiy, Doxycycline 100mg bid x 10 days, Cefdinir 300mg bid for 5 days. -Add Oral fluconazole 150mg po x 1 dose. Noted potential interaction between fluconazole and escitalopram with QT prolongation and have advised pt to notify the team if any cardiac symptoms ensue. 08/22/2024: The patient was admitted to the [facility] ([facility] inpatient mental health unit) on q15 min checks (behavioral with suicide precautions) for safety. The patient will participate in group, recreational, and milieu therapies and will be offered additional individual and family sessions as clinically appropriate. -Medications: * continue escitalopram 10 mg daily * doxycycline 100mg BID for 10 days * cefdinir 300mg BID for 5 days -Questionnaires: * Mood Disorder Questionnaire * Louis BPD Screen * NABILA Inventory Inventory Assets Strengths: resilient, independent, willing to get treatment Needs: safety and stabilization, medication adjustment, additional coping skills, increased outpatient services Suicide Risk Level Suicide Risk Level: Low (q15 min observation checks) (SI with plan prior to admission, but feels safe in the hospital, feels able to ask for support if needed) Risk Factors Assessment Male: No : No Do You Have Access To A Gun?: No Health Problems: No Mental Health Diagnoses: Yes Substance Use Disorders: Yes Previous Attempt: No Previous Psychiatric Hospitalization: Yes Hopelessness: Yes Protective Factors Assessment Employed: Yes (new job but also quit previous job) Interval History Identifying Information 29-year-old woman who currently lives in [place] alone, has a history of depression, anxiety, and was admitted on 08/22/24 11:02 on a 201 voluntary commitment for worsening depression and SI with plans. Chief Complaint "I am ready to go home". Review of Systems Sleep Information Total Hours of Sleep: 8 Meal Information Percent Meal Consumed - Breakfast: 80 Percent Meal Consumed - Lunch: 85 Percent Meal Consumed - Dinner: 90 Subjective Subjective Patient was seen & assessed and interval progress reviewed with treatment team. She reports feeling much better and "more optimistic". Mood is much improved, anxiety is better controlled. No medication side effects. SW referral was made for blended case management, who will assist with getting into therapy. Slept 8 hours. Attending groups. Notably, she is contemplative regarding her cannabis use and states "she wants to continue to use". Open to exploring IOP. Continues to report cramps but feels better overall. Physical Exam Psychiatric Orientation: alert and oriented x 3 Apperance: appropriately dressed and appropriately groomed Eye Contact: good eye contact and + fair eye contact Motor Behavior: no abnormal motor movements Speech: normal rate/rhythm/volume of speech Affect: + depressed affect, + anxious affect and mood congruent with affect Mood: + depressed mood and + anxious mood Thought Process: goal directed thought process and + circumstantial thought process Thought Content: reality based without delusions and + self deprecation Suicidal Thoughts: denies suicidal thoughts, denies suicidal plan and denies suicidal intent Homicidal Thoughts: denies homicidal thoughts Hallucinations: no auditory hallucinations and no visual hallucinations Cognition: recent memory grossly intact, remote memory grossly intact, attention grossly intact and language grossly intact Estimated Intelligence: consistent with education level Insight: + fair insight Judgment: + fair judgement Vital Signs (Past 24 Hours) Last Vital Signs Temp 36.8 C 08/26/24 06:29 Pulse 76 08/26/24 06:30 Resp 16 08/26/24 06:29 BP 109/62 08/26/24 06:30 Pulse Ox 100 08/22/24 12:38 O2 Del Method Room Air 08/22/24 12:38 Results & Data ([facility]) Current Inpatient Medications Current Inpatient Medications: Current Inpatient Medications Acetaminophen (Acetaminophen 325 Mg Tab) 650 mg PO Q4H PRN PRN Reason: Headache or Minor Fever Stop: 09/21/24 12:35 Last Admin: 08/25/24 14:14 Dose: 650 mg Al Hydrox/Mg Hydrox/Simethicone (Aluminum/Magnesium Susp 30 Ml Udc) 30 ml PO Q4H PRN PRN Reason: GI Upset Stop: 09/21/24 12:35 Bismuth Subsalicylate (Bismuth Subsalicylate 262 Mg Chew) 2 tab PO Q30M PRN PRN Reason: Loose Stool/Diarrhea Stop: 09/21/24 12:35 Cefdinir (Cefdinir 300 Mg Cap) 300 mg PO BID SATHISH; Protocol Stop: 08/27/24 17:24 Last Admin: 08/25/24 20:37 Dose: 300 mg Clonidine HCl (Clonidine Hcl 0.1 Mg Tab) 0.1 mg PO HS SATHISH Stop: 09/23/24 21:59 Last Admin: 08/25/24 20:37 Dose: 0.1 mg Doxycycline Hyclate (Doxycycline Hyclate 100 Mg Cap) 100 mg PO BID SATHISH Stop: 09/01/24 17:24 Last Admin: 08/25/24 20:37 Dose: 100 mg Escitalopram Oxalate (Escitalopram Oxalate 10 Mg Tab) 10 mg PO DAILYBD SATHISH Stop: 09/21/24 17:14 Last Admin: 08/25/24 17:31 Dose: 10 mg Hydroxyzine HCl (Hydroxyzine Hcl 25 Mg Tab) 50 mg PO HSZ PRN PRN Reason: Insomnia Stop: 09/21/24 12:35 Last Admin: 08/23/24 21:56 Dose: 50 mg Hydroxyzine HCl (Hydroxyzine Hcl 25 Mg Tab) 25 mg PO Q4H PRN PRN Reason: Anxiety Stop: 09/21/24 12:35 Last Admin: 08/22/24 22:05 Dose: 25 mg Ibuprofen (Ibuprofen 200 Mg Tab) 400 mg PO Q4H PRN PRN Reason: Pain or Fever Stop: 09/24/24 15:15 Lactobacillus Acidophilus (Advanced Probiotic 625 Mg Capsule) 1,250 mg PO DAILY SATHISH Stop: 09/22/24 08:59 Last Admin: 08/25/24 08:52 Dose: 1,250 mg Magnesium Hydroxide (Magnesium Hydroxide Susp 30 Ml Udc) 30 ml PO DAILY PRN PRN Reason: Constipation Stop: 09/21/24 12:35 Ondansetron HCl (Ondansetron 2 Mg Od Tab) 2 mg PO Q8H PRN PRN Reason: Nausea Stop: 09/21/24 15:41 Sodium Chloride (Sodium Chloride 0.65% Na Soln 45 Ml ([place])) 1 - 2 sprays NA PRN PRN PRN Reason: Nasal Dryness/Congestion Stop: 09/21/24 12:35 Mental Health & Subst Abuse Tx Therapist Name of Therapist: None Jacquard Loom Weaver Name of Jacquard Loom Weaver: None Post Discharge Appointments Primary Care Physician Name Of Family Doctor/PCP: Dr. Ivey
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
== END 2024-08-27 15:01 | disposition home or self-care (01) | DRG 885 ==
LOC: ED 05:16 → 3S 11:02 → ED 12:00

== ENCOUNTER 2024-09-06 19:25 | Inpatient (IN) ==
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
[2024-09-06 20:14] LABS: Basophils # (auto) 0.02 K/uL (0.00-0.20); Basophils % (auto) 0.5 %; Eosinophils # (auto) 0.07 K/uL (0.00-0.50); Eosinophils % (auto) 1.6 %; Hematocrit (blood only) 39.2 % (37.0-47.0); Lymphocytes # (auto) 1.64 K/uL (1.20-3.40); Lymphocytes % (auto) 37.6 %; Mean Corpuscular Hemoglobin 24.3 pg (25.0-34.0); Mean Corpuscular Hgb Conc 30.6 g/dL (32.0-36.0); Mean Corpuscular Volume 79.4 fL (80.0-100.0); Mean Platelet Volume 10.5 fL (9.4-12.4); Monocytes % (auto) 6.9 %; Neutrophils # (auto) 2.33 K/uL (1.40-6.50); Neutrophils % (auto) 53.4 %; Platelet Count 303 K/uL (130-400); RDW Coefficient of Variation 16.5 % (11.5-14.5); RDW Standard Deviation 47.2 fL (36.4-46.3); Red Blood Count 4.94 M/uL (4.20-5.40); White Blood Count 4.36 K/ul (4.8-10.8)
[2024-09-06 20:16] LABS: Appearance Urine Clear (Clear); Bacteria Urine Automated 1+ (None Seen); Bilirubin Urine Negative (Negative); Blood Urine Negative (Negative); Color Urine Yellow; Glucose Urine UA Negative (Negative); Ketones Urine Trace (Negative); Leukocyte Esterase Urine 1+ (Negative); Nitrite Urine Negative (Negative); Protein Urine Trace (Negative); RBC Urine Automated 0-2 /hpf (0-2); Specific Gravity Urine 1.027 (1.000-1.030); Urobilinogen Urine Negative (Negative); WBC Urine Automated 0-5 /hpf (0-5)
[2024-09-06 20:32] LABS: Pregnancy Test, Urine Negative (Negative)
[2024-09-06 20:33] LABS: Albumin Globulin Ratio 1.5 (0.9-2); Albumin Level 4.5 gm/dl (3.4-5.0); BUN Creatinine Ratio 12.2 (10-20); Bilirubin,Total 1.2 mg/dl (0.2-1.0); Creatinine Clr Calc Pharmacy 86.5 ml/min; Potassium 3.7 mmol/L (3.5-5.1); Total Protein 7.5 gm/dl (6.0-8.3)
[2024-09-06 20:47] LABS: Thyroid Stimulating Hormone 2.702 uIu/ml (0.300-4.500)
[2024-09-06 20:50] LABS: Acetaminophen < 3 ug/ml (10-30); Amphetamines+Metham, Urine Neg (Neg); Barbiturates, Urine Neg (Neg); Benzodiazepine, Urine Neg (Neg); Cocaine, Urine Neg (Neg); Fentanyl, Urine Neg (Neg); MDMA (Ecstacy), Urine Neg (Neg); Marijuana, Urine Pos (Neg); Methadone, Urine Neg (Neg); Opiate, Urine Neg (Neg); Phencyclidine, Urine Neg (Neg); Salicylate < 3.0 mg/dl (3.0-30)
[2024-09-06] MEDS ORDERED: hydrOXYzine HCl 25 MG TAB PO PRN ×2 (23:12)
[2024-09-06] MEDS ORDERED: SODIUM CHLORIDE 0.65% NA SOLN 45 ML (OCEAN) PRN (23:12)
[2024-09-06] MEDS ORDERED: BISMUTH SUBSALICYLATE 262 MG CHEW PO PRN (23:12)
[2024-09-06] MEDS ORDERED: ALUMINUM/MAGNESIUM SUSP 30 ML UDC PO PRN (23:12)
[2024-09-06] MEDS ORDERED: ACETAMINOPHEN 325 MG TAB PO PRN (23:12)
[2024-09-06] MEDS ORDERED: MAGNESIUM HYDROXIDE SUSP 30 ML UDC PO PRN (23:12)
[2024-09-07] MEDS: ESCITALOPRAM OXALATE 10 MG TAB PO SCH (09:12)
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
[2024-09-07] MEDS: cloNIDine HCL 0.1 MG TAB PO SCH (20:44)
[2024-09-08] MEDS: ESCITALOPRAM OXALATE 10 MG TAB PO SCH (09:07)
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
--- NOTE | 2024-09-09 12:03 | Psychiatric Progress Note ---
Date of Service September 09, 2024 Impression / Recommendations Impression 29-year-old individual with a history of anxiety, depression, and suicidal thoughts who recently discharged from inpatient psychiatric care. They are currently experiencing a significant exacerbation of symptoms due to multiple psychosocial stressors, including job instability, financial difficulties, housing uncertainty, and a lack of healthy social support. The patient has been engaging in self-harm by cutting their wrists and thighs and reports strong suicidal ideation with thoughts of jumping off a bridge or walking into traffic. They have been coping by sleeping excessively and using cannabis for appetite stimulation. Missed appointments with outpatient mental health providers have further contributed to feelings of disappointment and hopelessness. Assessment: Social Anxiety disorder, unspecified Generalized Anxiety Disorder Major depressive disorder, recurrent, moderate, without psychosis Post-traumatic stress disorder, unspecified Cannabis Use Disorder Borderline Personality Disorder.. (1) Cannabis use disorder, moderate, dependence: (2) Generalized anxiety disorder with panic attacks: (3) Depression with suicidal ideation: (4) Social anxiety disorder: (5) Post traumatic stress disorder (PTSD): Plan 09/09/24: Continue Lexapro at current dose. Add Clonidine 0.05mg q am for anxiety. 09/08/24: Continue current medications. Continue individual, milieu and group therapy. Maintain current level of observation. 09/07/24: Discussed medication treatment options in detail. Discussed risks, benefits and alternatives. Patient would like to start and consented to Lexapro and Clonidine. The patient's Lexapro dose will be increased from 10mg to 15mg to address their anxiety and depression symptoms. They will also be restarted on clonidine to aid with sleep and reduce distressing dreams. The patient will be encouraged to attend group therapy sessions and engage with staff during their inpatient stay to develop coping skills and process recent stressors. Coordination with the patient's outpatient providers, including their returned case inspector and therapist, will be prioritized to ensure continuity of care and establish a more stable support system upon discharge. Plan: - Follow up appointment within 1 week of discharge - Complete lab work as needed - Medications: - Increase Lexapro to 15mg daily - Restart clonidine at previous dose of 0.1mg qhs for anxiety. - Explore options for transitional housing and job support services - Encourage patient to attend group therapy sessions and individual therapy during inpatient stay - Coordinate with outpatient providers to reschedule missed appointments and ensure smooth transition of care Overall I spent a total of 45 minutes for this admission including review of chart records, review of labwork, direct evaluation of the patient, counseling the patient, ordering medication, risk assessment, discussion with the psychiatric liason RN and documentation in the electronic health record. Suicide Risk Level Suicide Risk Level: Moderate (q15 min suicide checks) Risk Factors Assessment Male: No Do You Have Access To A Gun?: No Health Problems: No Mental Health Diagnoses: Yes Substance Use Disorders: Yes Previous Attempt: No Family History of Suicide: No Previous Psychiatric Hospitalization: Yes Hopelessness: No Protective Factors Assessment Employed: No Stable Relationships: No Supportive Family: No Good Rapport with Provider: Yes Absence of Any Risk Factors Above: No Interval History Identifying Information 29-year-old woman who currently lives in [place] alone and was admitted on 08/22/24 11:02 on a 201 voluntary commitment for worsening depression and SI with plans. Diagnoses: Major Depressive Disorder r/o Cannabis Induced Mood disorder, Social Anxiety, JOELLEN, PTSD, Cannabis Use disorder, Borderline personality traits. Chief Complaint "I've decided to trust the process". Review of Systems Sleep Information Total Hours of Sleep: 6.5 Meal Information Percent Meal Consumed - Breakfast: 90 Percent Meal Consumed - Lunch: 100 Percent Meal Consumed - Dinner: 75 Nutrition Comment: Breakfast placed in separate container, labeled, and placed in unit fridge. Subjective Subjective Patient was seen & assessed and interval progress reviewed with nursing and social work. She is more interactive today and was out on the unit. Slept through the night, engaging with peers. No side effects from increased dose of medication. Mood is calmer and less depressed today; she endorses "a lot of physical anxiety symptoms" yesterday. Physical Exam Psychiatric Orientation: alert, oriented x 3 and cooperative Apperance: appropriately dressed, + disheveled and appeared stated age Eye Contact: + poor eye contact Motor Behavior: steady gait and station and no abnormal motor movements Speech: normal rate/rhythm/volume of speech Affect: + anxious affect and mood congruent with affect Mood: + depressed mood and + anxious mood Thought Process: goal directed thought process, linear/logical thought process and clear/coherent thought process Thought Content: + preoccupation Suicidal Thoughts: denies suicidal plan and denies suicidal intent Homicidal Thoughts: denies homicidal thoughts, denies homicidal plan and denies homicidal intent Cognition: recent memory grossly intact, remote memory grossly intact, attention grossly intact and language grossly intact Estimated Intelligence: average estimated intelligence Insight: + fair insight Judgment: + limited judgement Vital Signs (Past 24 Hours) Last Vital Signs Temp 36.7 C 09/09/24 06:35 Pulse 83 09/09/24 06:37 Resp 16 09/09/24 06:35 BP 108/76 09/09/24 06:37 Pulse Ox 95 09/06/24 23:39 O2 Del Method Room Air 09/06/24 23:39 Results & Data ([facility]) Current Inpatient Medications Current Inpatient Medications: Current Inpatient Medications Acetaminophen (Acetaminophen 325 Mg Tab) 650 mg PO Q4H PRN PRN Reason: Headache or Minor Fever Stop: 10/06/24 23:11 Al Hydrox/Mg Hydrox/Simethicone (Aluminum/Magnesium Susp 30 Ml Udc) 30 ml PO Q4H PRN PRN Reason: GI Upset Stop: 10/06/24 23:11 Bismuth Subsalicylate (Bismuth Subsalicylate 262 Mg Chew) 2 tab PO Q30M PRN PRN Reason: Loose Stool/Diarrhea Stop: 10/06/24 23:11 Clonidine HCl (Clonidine Hcl 0.1 Mg Tab) 0.1 mg PO HS SATHISH Stop: 10/07/24 21:59 Last Admin: 09/08/24 20:50 Dose: 0.1 mg Escitalopram Oxalate (Escitalopram Oxalate 10 Mg Tab) 15 mg PO QAM SATHISH Stop: 10/08/24 08:59 Last Admin: 09/09/24 08:36 Dose: 15 mg Hydroxyzine HCl (Hydroxyzine Hcl 25 Mg Tab) 50 mg PO HSZ PRN PRN Reason: Insomnia Stop: 10/06/24 23:11 Hydroxyzine HCl (Hydroxyzine Hcl 25 Mg Tab) 25 mg PO Q4H PRN PRN Reason: Anxiety Stop: 10/06/24 23:11 Magnesium Hydroxide (Magnesium Hydroxide Susp 30 Ml Udc) 30 ml PO DAILY PRN PRN Reason: Constipation Stop: 10/06/24 23:11 Sodium Chloride (Sodium Chloride 0.65% Na Soln 45 Ml ([place])) 1 - 2 sprays NA PRN PRN PRN Reason: Nasal Dryness/Congestion Stop: 10/06/24 23:11 Mental Health & Subst Abuse Tx Psychiatrist Name of Psychiatrist: Moustapha Psychiatrist's Date Of Appointment With Psychiatric Provider: 09.23.24 Time of Appointment with Psychiatrist: 9:30am Psychiatric Appointment Comment: Last chance. must show up or call to reschedule Therapist Name of Therapist: Ginette Anthropology Faculty Member Name of Anthropology Faculty Member: [facility] Post Discharge Appointments Primary Care Physician Name Of Family Doctor/PCP: Dr. Ivey
[2024-09-09] MEDS: cloNIDine HCL 0.1 MG TAB PO ONE (13:23)
[2024-09-10] MEDS: cloNIDine HCL 0.1 MG TAB PO SCH (08:59)
--- NOTE | 2024-09-10 11:41 | Psychiatric Progress Note ---
Date of Service September 10, 2024 Impression / Recommendations Impression 29-year-old individual with a history of anxiety, depression, and suicidal thoughts who recently discharged from inpatient psychiatric care. Current presentation triggered by multiple psychosocial stressors, including job instability, financial difficulties, housing uncertainty, and a lack of healthy social support. She appears to have again responded to the structured milieu of the unit. She plans to follow up more closely with her case liner (Medicaid approved). She denied SI intent or plan today. Assessment: Social Anxiety disorder. Generalized Anxiety Disorder. Major depressive disorder, recurrent, moderate, without psychosis. Post-traumatic stress disorder. Cannabis Use Disorder. Borderline Personality. (1) Cannabis use disorder, moderate, dependence: (2) Generalized anxiety disorder with panic attacks: (3) Depression with suicidal ideation: (4) Social anxiety disorder: (5) Post traumatic stress disorder (PTSD): Plan 09/10/24: Continue current medication. Anticipate discharge tomorrow. 09/09/24: Continue Lexapro at current dose. Add Clonidine 0.05mg q am for anxiety. 09/08/24: Continue current medications. Continue individual, milieu and group therapy. Maintain current level of observation. 09/07/24: Discussed medication treatment options in detail. Discussed risks, benefits and alternatives. Patient would like to start and consented to Lexapro and Clonidine. The patient's Lexapro dose will be increased from 10mg to 15mg to address their anxiety and depression symptoms. They will also be restarted on clonidine to aid with sleep and reduce distressing dreams. The patient will be encouraged to attend group therapy sessions and engage with staff during their inpatient stay to develop coping skills and process recent stressors. Coordination with the patient's outpatient providers, including their case liner and therapist, will be prioritized to ensure continuity of care and establish a more stable support system upon discharge. Plan: - Follow up appointment within 1 week of discharge - Complete lab work as needed - Medications: - Increase Lexapro to 15mg daily - Restart clonidine at previous dose of 0.1mg qhs for anxiety. - Explore options for transitional housing and job support services - Encourage patient to attend group therapy sessions and individual therapy during inpatient stay - Coordinate with outpatient providers to reschedule missed appointments and ensure smooth transition of care Overall, I spent a total of 25 minutes on this case including meeting with the patient, reviewing the chart, nursing report, multidisciplinary team meeting, orders, and documentation. Suicide Risk Level Suicide Risk Level: Moderate (q15 min suicide checks) Risk Factors Assessment Male: No Do You Have Access To A Gun?: No Health Problems: No Mental Health Diagnoses: Yes Substance Use Disorders: Yes Previous Attempt: No Family History of Suicide: No Previous Psychiatric Hospitalization: Yes Hopelessness: No Protective Factors Assessment Employed: No Stable Relationships: No Supportive Family: No Good Rapport with Provider: Yes Absence of Any Risk Factors Above: No Interval History Identifying Information 29-year-old woman who currently lives in [place] alone and was admitted on 08/22/24 11:02 on a 201 voluntary commitment for worsening depression and SI with plans. Diagnoses: Major Depressive Disorder r/o Cannabis Induced Mood disorder, Social Anxiety, JOELLEN, PTSD, Cannabis Use disorder, Borderline personality traits. Chief Complaint "I am feeling better". Review of Systems Sleep Information Total Hours of Sleep: 5.75 Meal Information Percent Meal Consumed - Breakfast: 95 Percent Meal Consumed - Lunch: 75 Percent Meal Consumed - Dinner: 100 Nutrition Comment: Breakfast placed in separate container, labeled, and placed in unit fridge. Subjective Subjective Patient was seen & assessed and interval progress reviewed with treatment team. She reports improved mood, improved sleep, and better controlled anxiety. She denied any suicidal ideation at this time. Denied urges to harm self. She demonstrates improved insight, particularly regarding the role of relationship stress in triggering emotional distress. She is contemplative about her cannabis use. Denied medication side effects from starting daytime dose of Clonidine. Physical Exam Psychiatric Orientation: alert, oriented x 3 and cooperative Apperance: appropriately dressed, + disheveled and appeared stated age Eye Contact: + fair eye contact Motor Behavior: steady gait and station and no abnormal motor movements Speech: normal rate/rhythm/volume of speech Affect: + anxious affect and mood congruent with affect Mood: + anxious mood Thought Process: goal directed thought process, linear/logical thought process and clear/coherent thought process Thought Content: + preoccupation Suicidal Thoughts: denies suicidal plan and denies suicidal intent Homicidal Thoughts: denies homicidal thoughts, denies homicidal plan and denies homicidal intent Cognition: recent memory grossly intact, remote memory grossly intact, attention grossly intact and language grossly intact Estimated Intelligence: average estimated intelligence Insight: + fair insight Judgment: + fair judgement Vital Signs (Past 24 Hours) Last Vital Signs Temp 36.8 C 09/10/24 06:41 Pulse 83 09/10/24 06:41 Resp 16 09/10/24 06:41 BP 106/66 09/10/24 06:41 Pulse Ox 95 09/06/24 23:39 O2 Del Method Room Air 09/06/24 23:39 Results & Data ([facility] [place]) Current Inpatient Medications Current Inpatient Medications: Current Inpatient Medications Acetaminophen (Acetaminophen 325 Mg Tab) 650 mg PO Q4H PRN PRN Reason: Headache or Minor Fever Stop: 10/06/24 23:11 Al Hydrox/Mg Hydrox/Simethicone (Aluminum/Magnesium Susp 30 Ml Udc) 30 ml PO Q4H PRN PRN Reason: GI Upset Stop: 10/06/24 23:11 Bismuth Subsalicylate (Bismuth Subsalicylate 262 Mg Chew) 2 tab PO Q30M PRN PRN Reason: Loose Stool/Diarrhea Stop: 10/06/24 23:11 Clonidine HCl (Clonidine Hcl 0.1 Mg Tab) 0.1 mg PO HS SATHISH Stop: 10/07/24 21:59 Last Admin: 09/09/24 21:21 Dose: 0.1 mg Clonidine HCl (Clonidine Hcl 0.1 Mg Tab) 0.05 mg PO QAM SATHISH Stop: 10/10/24 08:59 Last Admin: 09/10/24 08:59 Dose: 0.05 mg Escitalopram Oxalate (Escitalopram Oxalate 10 Mg Tab) 15 mg PO QAM SATHISH Stop: 10/08/24 08:59 Last Admin: 09/10/24 09:00 Dose: 15 mg Hydroxyzine HCl (Hydroxyzine Hcl 25 Mg Tab) 50 mg PO HSZ PRN PRN Reason: Insomnia Stop: 10/06/24 23:11 Hydroxyzine HCl (Hydroxyzine Hcl 25 Mg Tab) 25 mg PO Q4H PRN PRN Reason: Anxiety Stop: 10/06/24 23:11 Magnesium Hydroxide (Magnesium Hydroxide Susp 30 Ml Udc) 30 ml PO DAILY PRN PRN Reason: Constipation Stop: 10/06/24 23:11 Sodium Chloride (Sodium Chloride 0.65% Na Soln 45 Ml ([place])) 1 - 2 sprays NA PRN PRN PRN Reason: Nasal Dryness/Congestion Stop: 10/06/24 23:11 Mental Health & Subst Abuse Tx Psychiatrist Name of Psychiatrist: Moustapha Psychiatrist's Date Of Appointment With Psychiatric Provider: 09.23.24 Time of Appointment with Psychiatrist: 9:30am Psychiatric Appointment Comment: Last chance. must show up or call to reschedule Therapist Name of Therapist: Ann[facility] Appointment Comment: SEE Rose to set up appt Hand Kiss Setter Name of Hand Kiss Setter: Rose - [facility] Date of Appointment with Hand Kiss Setter: 09/16/24 Time of Appointment with Hand Kiss Setter: 3PM Case Management Appointment Comment: Will contact you to meet up Post Discharge Appointments Primary Care Physician Name Of Family Doctor/PCP: Dr. Ivey Contact Information Discharge Discharge Address: [address] [place] [address] [address], [place] [address]
[2024-09-10 22:48] LABS: Marijuana Quant, GCMS Urine 2226 ng/mL (<5)
--- NOTE | 2024-09-11 10:26 | Discharge Summary ---
Date of Service September 11, 2024 History of Present Illness Following her discharge, she became overwhelmed and hopeless due to a series of recent stressors and setbacks. 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 The patient then attended a friend's birthday libertarian where they witnessed a verbal altercation that triggered them. Feeling lonely and unsupported, the patient reached out to friends but felt their support was inadequate. On Sunday, the patient began cutting their wrists and thighs, and by Sunday, suicidal thoughts intensified, including thoughts of jumping off a bridge or walking into traffic during salazar hour. The patient reports sleeping more than usual to avoid their problems and has been smoking less than a gram of cannabis daily to help with appetite. The patient had a psychiatry appointment scheduled at [place] and a meeting with their case preparer and liner, Rose, but both were missed or canceled, further contributing to feelings of disappointment and instability. The patient expresses feeling weak, immature, and traumatized, with difficulty maintaining healthy relationships. PHQ-9 Score: 19 (moderate-severe) JOELLEN 7 Score: 20 (severe) Louis BPD Screen: Positive (yes to all but derealization) International Trauma Questionnaire: 40 (moderate-severe) Past Medical History: Acute cervicitis. Recently completed her period. Denied any sexual activity since early July 2024. Family History: Extensively documented during her recent admission. Family history of mood symptoms in her mother (irritability alternating with depressive symptoms), heavy cannabis use by her father. Social History: Currently staying at a friend's place but feels it is not a long-term option. 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 Owes money to the bank after overdrawing account to pay rent. Lacks a strong, healthy support system. Physical Exam Mental Examination Appearance: Well Groomed Motor Behavior: Unremarkable Speech: Normal Mood: Euthymic and Calm Affect: Appropriate and Congruent Thought Process: Intact, Goal Oriented and Logical Thought Content: Intact, Linear and Logical Hallucinations: None Insight: Good Judgement: Fair Vital Signs (Past 24 Hours) Last Vital Signs Temp 36.8 C 09/11/24 08:08 Pulse 73 09/11/24 08:08 Resp 17 09/11/24 08:08 BP 106/66 09/11/24 08:08 Pulse Ox 100 09/11/24 08:08 O2 Del Method Room Air 09/11/24 06:00 Principal Diagnosis Social Anxiety disorder. Generalized Anxiety Disorder. Major depressive disorder, recurrent, moderate, without psychosis. Post-traumatic stress disorder. Cannabis Use Disorder. Borderline Personality. Psychiatric Data See daily stay summary. In short, safety was maintained and the patient was cooperative with care. Medication changes included [] and they tolerated this well. A family session was [held] and safety plan was completed prior to discharge. Day of Discharge Assessment Today the patient voices readiness for discharge. They note improvement in mood and deny thoughts to harm self or others. Thoughts remain organized and they are improved from admission. There is no evidence of psychosis. They agree to take mediations as prescribed and keep follow-up appointments. They are stable for discharge to outpatient level of care. Transition of Care Transition Of Care Record: was reviewed with the patient Advance Directives Advance Directives Information Provided: Yes Advance Directives: No Mental Health Advance Directive: No Advance Directives on File: No Living Will: No Power of Tribal Delegate: No Advance Directives Reason:: Declines as Mental Health Visit. Suicide Risk Level Suicide Risk Level: Low (q15 min observation checks) Risk Factors Assessment Male: No Do You Have Access To A Gun?: No Health Problems: No Mental Health Diagnoses: Yes Substance Use Disorders: Yes Previous Attempt: No Family History of Suicide: No Previous Psychiatric Hospitalization: Yes Hopelessness: No Protective Factors Assessment Employed: No Stable Relationships: No Supportive Family: No Good Rapport with Provider: Yes Absence of Any Risk Factors Above: No Total Time Total Time Spent: Less Than 30 Minutes Discharge Data Lab Results 09/06/24 19:43 WBC 4.36 L RBC 4.94 Hgb 12.0 Hct 39.2 MCV 79.4 L MCH 24.3 L MCHC 30.6 L RDW Std Deviation 47.2 H RDW Coeff of Darrin 16.5 H Plt Count 303 MPV 10.5 Immature Gran % (Auto) 0.0 Neut % (Auto) 53.4 Lymph % (Auto) 37.6 Barnes % (Auto) 6.9 Eos % (Auto) 1.6 Baso % (Auto) 0.5 Neut # (Auto) 2.33 Lymph # (Auto) 1.64 Barnes # (Auto) 0.30 Eos # (Auto) 0.07 Baso # (Auto) 0.02 Immature Gran # (Auto) 0.00 L Sodium 136 Potassium 3.7 Chloride 104 Carbon Dioxide 26 Anion Gap 6 BUN 9 Creatinine 0.74 Est Cr Clr Drug Dosing 86.5 eGFR 113.65 BUN/Creatinine Ratio 12.2 Glucose 102 H Calcium 9.0 Total Bilirubin 1.2 H AST 27 ALT 23 Alkaline Phosphatase 55 Total Protein 7.5 Albumin 4.5 Globulin 3.0 Albumin/Globulin Ratio 1.5 TSH 2.702 Urine Color Yellow Urine Appearance Clear Urine pH 7.0 Ur Specific [place] 1.027 Urine Protein Trace H Urine Glucose (UA) Negative Urine Ketones Trace H Urine Blood Negative Urine Nitrite Negative Urine Bilirubin Negative Urine Urobilinogen Negative Ur Leukocyte Esterase 1+ H Urine WBC (Auto) 0-5 Urine RBC (Auto) 0-2 U Hyaline Cast (Auto) 3-5 H U Epithel Cells (Auto) 6-10 H Urine Bacteria (Auto) 1+ H Urine Test Negative Salicylates < 3.0 L Urine Opiates Screen Neg Ur Methadone, Qual Neg Urine Fentanyl Screen Neg Acetaminophen < 3 L Urine Barbiturates Neg Ur Phencyclidine (PCP) Neg U Amphetamin/Meth Scrn Neg MDMA (Ecstasy) Screen Neg U Benzodiazepines Scrn Neg Ur Cocaine Metabolite Neg U Marijuana (THC) Screen Pos H U Marijuana THC Carboxy 2226 H Drug Screen Comment SEE NOTE Ethyl Alcohol mg/dL < 10.0 SARS-CoV-2, RNA, NAAT NEGATIVE Hospital Course (1) Cannabis use disorder, moderate, dependence: (2) Generalized anxiety disorder with panic attacks: (3) Depression with suicidal ideation: (4) Social anxiety disorder: (5) Post traumatic stress disorder (PTSD): Plan 09/10/24: Continue current medication. Anticipate discharge tomorrow. 09/09/24: Continue Lexapro at current dose. Add Clonidine 0.05mg q am for anxiety. 09/08/24: Continue current medications. Continue individual, milieu and group therapy. Maintain current level of observation. 09/07/24: Discussed medication treatment options in detail. Discussed risks, benefits and alternatives. Patient would like to start and consented to Lexapro and Clonidine. The patient's Lexapro dose will be increased from 10mg to 15mg to address their anxiety and depression symptoms. They will also be restarted on clonidine to aid with sleep and reduce distressing dreams. The patient will be encouraged to attend group therapy sessions and engage with staff during their inpatient stay to develop coping skills and process recent stressors. Coordination with the patient's outpatient providers, including their case preparer and liner and therapist, will be prioritized to ensure continuity of care and establish a more stable support system upon discharge. Plan: - Follow up appointment within 1 week of discharge - Complete lab work as needed - Medications: - Increase Lexapro to 15mg daily - Restart clonidine at previous dose of 0.1mg qhs for anxiety. - Explore options for transitional housing and job support services - Encourage patient to attend group therapy sessions and individual therapy during inpatient stay - Coordinate with outpatient providers to reschedule missed appointments and ensure smooth transition of care Overall, I spent a total of 25 minutes on this case including meeting with the patient, reviewing the chart, nursing report, multidisciplinary team meeting, orders, and documentation. Mental Health & Subst Abuse Tx Psychiatrist Name of Psychiatrist: Moustapha Psychiatrist's Date Of Appointment With Psychiatric Provider: 09.23.24 Time of Appointment with Psychiatrist: 9:30am Psychiatric Appointment Comment: Last chance. must show up or call to reschedule Therapist Name of Therapist: Daksha Dean [facility] Therapist's Date of Therapist Appointment: 09/11/24 Time of Therapist Appointment: 11:30am Therapy Appointment Comment: [address] [place] [address] [employer] Director Name of [employer] Director: Rose [facility] Date of Appointment with [employer] Director: 09/16/24 Time of Appointment with [employer] Director: 3PM Case Management Appointment Comment: Will contact you to meet up Post Discharge Appointments Primary Care Physician Name Of Family Doctor/PCP: Dr. Ivey Contact Information Discharge Discharge [address]: [address] [place] [id number] Discharge Plan Discharge Items Patient Disposition: Home - Self-Care Reason For Visit: GENERALIZED ANXIETY DISORDER/UNSPECIFIED MOOD DISO Discharge Diagnosis: Social Anxiety disorder. Generalized Anxiety Disorder. Major depressive disorder, recurrent, moderate, without psychosis vs Cannabis induced Mood Disorder. Post-traumatic stress disorder. Cannabis Use Disorder. Borderline Personality. Condition on Discharge: Good Health Concerns: Recent treatment for cervicitis Goals: Maintain mental and physical health. Harm reduction with regards to cannabis use. Activity: Resume your previous activity Lifting: Gradually increase as tolerated Sexual Activity: When tolerated Exercise/Sports: As tolerated Driving/Machine Use: No limitations Weightbearing: Full weightbearing Non-emergency contact: Primary Care Provider, Psychiatrist and Therapist Call non-emergency contact if: you have any medication questions and your symptoms worsen Follow-up/Referrals: Tereso Ivey MD [Primary Care Provider] - Diet: Regular Addtl Attending Provider Instructions: Keep aftercare appointments. Pending Studies at Discharge: No Stand-Alone Forms: My [facility] [employer], Smoking Cessation Medications and DC Order Prescriptions: New clonidine HCl 0.1 mg Tablet 0.1 mg PO HS 30 Days Qty: 30 0RF clonidine HCl 0.1 mg Tablet 0.05 mg PO QAM 30 Days Qty: 15 0RF escitalopram oxalate 10 mg Tablet 15 mg PO QAM 30 Days Qty: 45 0RF Discontinued Lexapro 10 mg PO 1XD Discharge Orders: Discharge Order (Routine); Ordered 09/11/24 Ordered By: Vinicio King/Other Patient Handouts: Coping with PTSD, Depression: Tips to Help Yourself, Addiction Disease, Anxiety Disorders Tx, Suicide Warning What To Do, Addiction Tx Options, Spotting Suicide Warning Signs, Understanding Anxiety Disorders, Understanding Marijuana Abuse, Treating Drug Abuse and Addiction, PTSD Tx Admission Data Admit Date/Time: 09/06/24 22:33 Attending Provider: Vinicio Flores Admit Provider: Vinicio Flores Primary Care Provider: Tereso Ivey Other Interventions: Discharge Summary Assessment (RN) Last Done: 09/11/24 08:08 PSY Interdisciplinary Discharge Planning Last Done: 09/10/24 13:58 [place] [address] D/C day mgmt 30 min or < Patient Type Established History Problem Focused Medical Decision Making Straight Forward Diagnoses Cannabis use disorder, moderate, dependence F12.20 Generalized anxiety disorder with panic attacks F41.1; F41.0 Depression with suicidal ideation F32.A; R45.851 Social anxiety disorder F40.10 Post traumatic stress disorder (PTSD) F43.10 Time Spent (min) 25
== END 2024-09-11 11:10 | disposition home or self-care (01) | DRG 885 ==
LOC: ED 19:25 → 3S 22:55